=== PATIENT | female | born 1950 | race Hispanic/Latino ===

== ENCOUNTER 2017-04-17 07:09 | Day surgery (SDC) | payer MEDICARE, MEDICAID ==
[2017-04-14 12:41] VITALS: BMI 20.6
--- NOTE | 2017-04-15 06:37 | HP ---
REASON FOR ADMISSION: Left heart cath, possible angioplasty. BRIEF CLINICAL HISTORY: This is a 67-year-old female with past medical history of COPD, hypertension , admitted for left and right heart cath for possible angioplasty. PAST MEDICAL HISTORY: Significant for hypertension, hyperlipidemia, COPD. SOCIAL HISTORY: Active tobacco abuse. CURRENT MEDICATIONS: The patient is taking Cardizem 90 mg b.i.d., ____ 100 in the morning, Fosamax 7 0 mg daily, albuterol inhaler and ipratropium-Atrovent inhaler as well. Recent cardiac workup as follows: The patient had a stress test 04/10/2017 that shows probably abnorm al SPECT myocardial perfusion study, reversible defect suspicious for ischemia and apical defect, eje ction fraction 59%. The patient had echocardiography done on 04/06/2017 that showed ejection fraction 40%, moderate LV diastolic dysfunction, mild to moderate MR, mild tricuspid regurgitation. ALLERGIES: PNEUMOCOCCAL VACCINE. REVIEW OF SYSTEMS: As per HPI. PHYSICAL EXAMINATION: VITAL SIGNS: Height of the patient is 5 feet 6 inches, weight of the patient 128 pounds, body mass i ndex 21 kg/m2. Heart rate 60, blood pressure 130/66. HEENT: PERRLA. Extraocular muscles intact. NECK: Supple. No carotid bruits. No thyromegaly. CHEST: Clear to auscultation. HEART: S1, S2 regular. ABDOMEN: Soft. EXTREMITIES: Clubbing and cyanosis negative. IMPRESSION: Abnormal stress test, cardiomyopathy by stress test, ejection fraction 54%, by echo 40%, mitral regurgitation, tricuspid regurgitation, chronic obstructive pulmonary disease, hypertension. RECOMMENDATION: We will do left and right heart catheterization. Further recommendation after cardi ac catheterization. We will load with Plavix, follow with you. Thank you, Dr. Duke/Kurt, for providing us opportunity in taking care of the patient. Radha Mrarero MD cc: [phone] TT: 04/15/2017 06:36:47 co
[2017-04-17 07:43] LABS: HEMATOCRIT 44.8 % (36.0-48.0); MEAN CELL VOLUME 95.7 fL (80.0-105.0); MEAN CORPUSCULAR HEMOGLOBIN 33.1 pg (25.0-35.0); MEAN CORPUSCULAR HGB CONC 34.6 g/dl (31.0-37.0); MEAN PLATELET VOLUME 10.3 fl (7.0-11.0); RED CELL DISTRIBUTION WIDTH 12.6 % (11.5-14.5); WHITE BLOOD COUNT 7.4 10^3/ul (4.5-11.0)
[2017-04-17 07:49] LABS: CALCIUM 9.5 mg/dL (8.4-10.5); POTASSIUM 4.3 mmol/L (3.6-5.0)
[2017-04-17 07:56] VITALS: RESP 18
[2017-04-17 07:57] LABS: INR 0.89 (0.93-1.08); PARTIAL THROMBOPLASTIN TIME 26.5 Seconds (23.7-30.8)
[2017-04-17] MEDS ORDERED: Lidocaine 2% Inj (20ml) ONE (09:05)
[2017-04-17] MEDS ORDERED: Iodixanol 320 MG/ML 200 ML BOTTLE IV ONE (09:05)
[2017-04-17] MEDS ORDERED: Midazolam 2 MG/2 ML VIAL ONE ×2 (09:28→10:37)
[2017-04-17] MEDS ORDERED: Sodium Chloride 0.9% 1,000 ML IV SCH (11:00)
[2017-04-17 11:11] VITALS: TEMP 98.1
[2017-04-17 13:26] VITALS: O2SAT 99
[2017-04-17 13:47] VITALS: BP 153/77; PULSE 76
--- NOTE | 2017-04-17 18:13 | CARD ---
APPROVED REPORT Procedure(s) performed: Complete Heart Catheterization HISTORY The patient is a 67 year-old female with a history of : hypertension , dyslipidemia , COPD , chest pain SOB, OVIEDO and abnormal Stress test. INDICATION The indication(s) include : positive stress test. CASE TECHNIQUE The patient was brought electively to the Cardiac Catheterization Laboratory in a fasting state and was prepped and draped in a sterile manner. The right femoral groin was infiltrated with 2% Lidocaine subcutaneous anesthesia. A 6F Remedios sheath was inserted into the right femoral artery without difficulty. Coronary angiography was performed using coronary diagnostic catheters. The left coronary system was accessed and visualized with a Diagnostic , 5Fr,JL4.0 catheter. The right coronary system was accessed and visualized with a Diagnostic ,5FR,JR3.5 catheter. The left ventricle was accessed and visualized with a Pigtail catheter. Left ventricular/Aortic Valve gradient assessed on pullback. Left ventriculogram was performed in LIRIANO projection. A Right Heart Catheterization was performed with a 7 Fr. Gregory-Marissa catheter and pressure were recorded. A 7 sheath was inserted into the right femoral vein without difficulty. Coronary angiography was performed using coronary diagnostic catheters. Cardiac outputs were obtained by the Thermal Dilution method. Pre-demployment femoral angiogram was performed . Closure device was deployed with a 6 Fr Angioseal in RFA and Mynx in RF vein without any complications. The patient tolerated the procedure well and there were no complications associated with the procedure. Vessel Analysis The patient's coronary anatomy is right dominant. The left main coronary artery is a large size vessel with intimal irregularities and without significant stenosis. The left main bifurcates to the left anterior descending and circumflex. The left anterior descending artery is a medium size vessel with diffuse calcification noted throughout this vessel and without significant stenosis. There is a 55% stenosis in the very distal segment. diffusely diseased, but no focal flow limiting stenoses The first diagonal branch is a small size vessel with intimal irregularities and without significant stenosis. The circumflex artery is a large size vessel with diffuse calcification noted throughout this vessel and without significant stenosis. The first obtuse marginal branch is a large size vessel with diffuse calcification noted throughout this vessel and without significant stenosis. The second obtuse marginal branch is a small size vessel with intimal irregularities and without significant stenosis. The right coronary artery is a large size vessel without significant stenosis. The right posterior descending artery is a large size vessel without significant stenosis. Left Ventricle The left ventricle is normal in size with normal contractility. There was no cardiomyopathy. The left ventricular ejection fraction is estimated to be 55-60%. The left ventricular end diastolic pressure is 20-22 mmHg. There was no gradient across the aortic valve upon pullback. Right Heart Cath Findings The Right Atrial Pressure is 12 mmHg. The Right Ventricular Pressure is 38/8 mmHg. The Pulmonary Artery Pressure is 38/18 mmHg. mean of 23 The Pulmonary Catheter Wedge Pressure is 18-20 mmHg. PVR 1 Wood units. The cardiac output and index were assessed using thermo dilution. The Cardiac Output is 4.97 L/min. The Cardiac index is 3.10 L/min/m2. Conclusion Non Obstructive CAD, limited to very distal LAD 55%, Non flow limiting ( major epicardial coronaries are essentially normal) Preserved LV FX. EF-55%, [id number] RHC: RA-12,RV-38/8,PA-32/18 with a meanof 23, PCW-18-20, CO-4.91, CI-3.1,PVR 1 rivas unit. Recommendations Aggressive Medical TherapyCardiac Risk Reduction Program Cc; Ronnie Barron / Tai.
== END 2017-04-17 15:30 | disposition home or self-care (01) ==
LOC: CATH 07:09
PROVIDERS: ATTEND Internal Medicine Cardiovascular Disease
DX: I25.10 Atherosclerotic heart disease of native coronary artery without angina pectoris (principal); I10 Essential (primary) hypertension; I42.9 Cardiomyopathy, unspecified; I08.1 Rheumatic disorders of both mitral and tricuspid valves; J44.9 Chronic obstructive pulmonary disease, unspecified; E78.5 Hyperlipidemia, unspecified; Z72.0 Tobacco use
CPT/HCPCS: 36415; 80048; 80061; 85027; 85610; 85730; 86850; 86900; 93460; 99152; 99153; C1760 ×2; C1769; C1894; C2629; J1644; J1940; J2250; J3010; J7030; J7040

== ENCOUNTER 2017-10-15 12:23 | Observation (INO) | payer MEDICARE, MEDICAID ==
[2017-10-15 12:26] VITALS: BMI 22.3
[2017-10-15] MEDS ORDERED: Vancomycin 1gm in NS 250ml 1 GM/250 ML BAG IVPB STA (12:47)
[2017-10-15] MEDS ORDERED: Piperacillin/Tazobact 3.375 gm 100 ML IVPB STA (12:47)
[2017-10-15] MEDS ORDERED: Oxycodone/Acetaminophen 5/325 mg Tab PO STA (12:49)
[2017-10-15 13:20] LABS: BASO # 0.04 K/mm3 (0.0-2.0); BASO % 0.4 % (0.0-3.0); EOS # 0.1 (0.0-0.7); EOS % 1.1 % (1.5-5.0); GRAN # 7.01 (1.4-6.5); GRAN % 75.4 % (50.0-68.0); HEMATOCRIT 45.5 % (36.0-48.0); LYMPH # 1.5 (1.2-3.4); LYMPH % 16.2 % (22.0-35.0); MEAN CELL VOLUME 98.5 fl (80.0-105.0); MEAN CORPUSCULAR HGB CONC 34.5 g/dl (31.0-37.0); MEAN PLATELET VOLUME 10.3 fl (7.0-11.0); MONO # 0.6 (0.1-0.6); MONO % 6.9 % (1.0-6.0); RED CELL DISTRIBUTION WIDTH 12.8 % (11.5-14.5); WHITE BLOOD COUNT 9.3 10^3/ul (4.5-11.0)
[2017-10-15 13:22] LABS: VENOUS BLOOD GAS BASE EXCESS -1.4 mmol/L (0.0-2.0); VENOUS BLOOD PH 7.31 (7.32-7.43)
--- NOTE | 2017-10-15 13:23 | ED PDOC ---
Arrival/HPI - General Chief Complaint: Breast Problem Time Seen by Provider: 10/15/17 12:25 Historian: Patient - History of Present Illness Narrative History of Present Illness (Text): 10/15/17 13:20 67yr old female presents today with 3 week history of breast infection. pt states over the past 3 weeks she has been on 2 different antibiotics. pt states redness improved briefly and then returned. pt states she now has lump to inferior aspect of breast with severe pain, warmth and surrounding redness. denies fever/chill. no cp or sob. no abdominal pain. no other complaints. pt states she did recently have mammogram. Time/Duration: Other (3 weeks) Symptom Onset: Gradual Symptom Course: Worsening Quality: Aching Severity Level: 6 Past Medical History - Provider Review Nursing Documentation Reviewed: Yes - Travel History Have you recently traveled outside [place] w/in the past 3 mons?: No - Infectious Disease Hx of Infectious Diseases: None - Tetanus Immunization Tetanus Immunization: Unknown - Reproductive Menopause: Yes - Past Medical History Past Medical History: No Previous - Cardiac Hx Cardiac Arrhythmia: Yes Hx Pacemaker: No - Pulmonary Hx Asthma: Yes Hx Chronic Obstructive Pulmonary Disease (COPD): Yes Hx Emphysema: Yes - Neurological Hx Paralysis: No - HEENT Hx HEENT Disorder: No Hx Blind: No Hx Cataracts: No Hx Deafness: No Hx Difficulty Chewing: No Hx Epistaxis: No Hx Glaucoma: No Hx Macular Degeneration: No - Renal Hx Renal Disorder: No Hx Dialysis: No Hx Kidney Stones: No Hx Neurogenic Bladder: No Hx Pyelonephritis: No Hx Renal Cancer: No Hx Renal Failure: No - Endocrine/Metabolic Hx Endocrine Disorders: No Hx Adrenal Cancer: No Hx Diabetes Insipidus: No Hx Diabetes Mellitus Type 1: No Hx Diabetes Mellitus Type 2: No Hx Hyperthyroidism: No Hx Hypothyroidism: No Hx Systemic Lupus Erythematosus: No - Hematological/Oncological Hx Blood Transfusions: No Hx Blood Transfusion Reaction: No - Integumentary Hx Dermatological Disorder: No Hx Basal Cell Carcinoma: No Hx Eczema: No Hx Melanoma: No Hx Psoriasis: No Hx Squamous Cell Carcinoma: No - Musculoskeletal/Rheumatological Hx Musculoskeletal Disorders: No - Gastrointestinal Hx Gastrointestinal Disorders: No Hx Colostomy: No Hx Crohn's Disease: No Hx Diverticulitis: No Hx Gall Bladder Disease: No Hx Gastroesophageal Reflux: No Hx Gastrointestinal Ulcer: No Hx Ileostomy: No Hx Pancreatitis: No HX Swallowing Problems: No - Genitourinary/Gynecological Hx Genitourinary Disorders: No Hx Hematuria: No Hx Incontinence: No Hx Prostate Problems: No Hx Sexually Transmitted Diseases: No Hx Urinary Tract Infection: No - Psychiatric Hx Emotional Abuse: No Hx Physical Abuse: No Hx Substance Use: No - Surgical History Hx Amputation: No Hx Appendectomy: No Hx Cardiac Catheterization: No Hx Cholecystectomy: No Hx Coronary Stent: No Hx Gastric Bypass Surgery: No Hx Hysterectomy: No Hx Inguinal Hernia Repair: No Hx Joint Replacement: No Hx Kidney Transplant: No Hx Liver Transplant: No Hx Mastectomy: No Hx Musculoskeletal Surgery: No Hx Open Heart Surgery: No Hx Orthopedic Surgery: No Hx Splenectomy: No Hx Valve Replacement: No - Anesthesia Hx Anesthesia Reactions: No Hx Malignant Hyperthermia: No - Suicidal Assessment Feels Threatened In Home Enviroment: No Family/Social History - Physician Review Nursing Documentation Reviewed: Yes Family/Social History: Unknown Family HX Smoking Status: Current Some Days Smoker Hx Alcohol Use: Yes (socially) Hx Substance Use: No Hx Substance Use Treatment: No Allergies/Home Meds Allergies/Adverse Reactions: Allergies pneumococcal vaccine Allergy (Severe, Verified 07/14/16 19:07) SWELLING/REDNESS Home Medications: Home Meds Medication Instructions Recorded Confirmed Aclidinium [place] [Tudorza 1 puff IH BID 04/29/16 10/15/17 Pressair] Alendronate [Fosamax] 70 mg PO SUN 04/29/16 10/15/17 Mometasone [Asmanex Twist[place]er 220 1 puff IH QAM 04/29/16 10/15/17 MCG] Albuterol/Ipratropium [Duoneb 3 1 inhaler INH Q6 PRN 10/15/17 10/15/17 mg/0.5 mg (3 ml) UD] Aspirin [Aspirin Chewable] 81 mg PO DAILY 10/15/17 10/15/17 Carvedilol [Coreg] 3.125 mg PO BID 10/15/17 10/15/17 Cholecalciferol (Vitamin D3) 1 tab PO DAILY 10/15/17 10/15/17 [Vitamin D3] Valsartan [Diovan] 100 mg PO DAILY 10/15/17 10/15/17 diltiaZEM [Cardizem] 90 mg PO DAILY 10/15/17 10/15/17 Review of Systems - Review of Systems Constitutional: absent: Fatigue, Fevers Respiratory: absent: SOB, Cough Cardiovascular: absent: Chest Pain, Palpitations Gastrointestinal: absent: Abdominal Pain, Nausea, Vomiting Genitourinary Female: absent: Dysuria Skin: Rash, Abscess, Cellulitis Neurological: absent: Headache, Dizziness Psychiatric: absent: Anxiety, Depression Physical Exam Vital Signs Reviewed: Yes Vital Signs Temp Pulse Resp BP Pulse Ox 10/15/17 12:24 98.3 F 100 H 18 130/81 96 Temperature: Afebrile Blood Pressure: Normal Pulse: Tachycardic Respiratory Rate: Normal Appearance: Positive for: Well-Appearing, Non-Toxic, Comfortable Pain Distress: None Mental Status: Positive for: Alert and Oriented X 3 - Systems Exam Head: Present: Atraumatic Mouth: Present: Moist Mucous Membranes Neck: Present: Normal Range of Motion Respiratory/Chest: Present: Clear to Auscultation, Good Air Exchange. No: Respiratory Distress, Accessory Muscle Use Cardiovascular: Present: Regular Rate and Rhythm, Normal S1, S2. No: Murmurs Breast/Axillary: Present: Erythema (right breast; there is a quarter sized area of erythema and fluctance noted over inferior aspect of the breast just inferior to the areola; with erythema extending along the inferior medial and lateral aspects of the breast. ), Masses, Swelling, Tender to Palpation. No: Nipple Discharge Neurological: Present: GCS=15, Speech Normal Skin: Present: Warm, Dry, Normal Color. No: Rashes Psychiatric: Present: Alert, Oriented x 3 Medical Decision Making ED Course and Treatment: 10/15/17 13:53 67yr old female with 3 week history of abscess/cellulitis to breast. cbc wnl cmp K; 5.1 lactate: wnl cxr; wnl 10/15/17 13:[address] rubin; accepts admission for breast abscess and cellulitis with failure of outpatient abx; she would like Dr. Carvajal on consult Case discussed with surgical consultant dr. mendieta; he will see patient at bedside impression; celluiltis, breast abscess admit to med/surg - Lab Interpretations Lab Results: 10/15/17 13:10 10/15/17 13:10 Lab Results 10/15/17 13:10: pO2 30, VBG pH 7.31 L, VBG pCO2 51.0, VBG HCO3 25.7, VBG Total CO2 27.3, VBG O2 Sat (Calc) 63.5, VBG Base Excess -1.4 L, VBG Potassium 5.2, Sodium 133.0, Chloride 99.0, Glucose 101, Lactate 1.4, FiO2 21.0, Venous Blood Potassium 5.2 10/15/17 13:10: WBC 9.3, RBC 4.62, Hgb 15.7, Hct 45.5, MCV 98.5, MCH 34.0, MCHC 34.5, RDW 12.8, Plt Count 232, MPV 10.3, Gran % 75.4 H, Lymph % (Auto) 16.2 L, [place] % (Auto) 6.9 H, Eos % (Auto) 1.1 L, Baso % (Auto) 0.4, Gran # 7.01 H, Lymph # 1.5, [place] # 0.6, Eos # 0.1, Baso # 0.04 10/15/17 13:10: Sodium 134, Chloride 99, Potassium 5.1 H, Carbon Dioxide 26, Anion Gap 14, BUN 17, Creatinine 1.2, Est GFR ( Amer) 55, Est GFR (Non- Af Amer) 45, Random Glucose 98, Calcium 10.2, Total Bilirubin 1.0, AST 26, ALT 37, Alkaline Phosphatase 61, Total Protein 8.0, Albumin 4.7, Globulin 3.3, Albumin/Globulin Ratio 1.4 - RAD Interpretation Radiology Orders: 10/15/17 13:25 CHEST PORTABLE [RAD] Stat - Medication Orders Current Medication Orders: Vancomycin HCl (Vancomycin 1gm) 1 gm in 250 mls @ 167 mls/hr IVPB STAT STA PRN Reason: Protocol Stop: 10/15/17 14:16 Discontinued Medications Piperacillin Sod/Tazobactam Sod (Zosyn 3.375 In Ns 100ml) 100 mls @ 200 mls/hr IVPB STAT STA PRN Reason: Protocol Stop: 10/15/17 13:16 Last Admin: 10/15/17 13:19 Dose: 200 mls/hr eMAR Start Stop Document 10/15/17 13:19 AD (Rec: 10/15/17 13:19 AD [id number]) Intravenous Solution Start Date 10/15/17 Start Time 13:19 Oxycodone/Acetaminophen (Percocet 5/325 Mg Tab) 1 tab PO STAT STA Stop: 10/15/17 12:50 Last Admin: 10/15/17 13:10 Dose: 1 tab MAR Pain Assessment Document 10/15/17 13:10 AD (Rec: 10/15/17 13:18 AD [id number]) Pain Reassessment Is this a pain reassessment? No Presence of Pain Presence of Pain Yes Pain Scale Used Pain Scale Used Numeric Location Left, Right or Bilateral Right Pain Location Body Site Breast Description Description Constant Intensity of Pain at present 8 Pain Behavior Facial Grimacing Disposition/Present on Arrival - Present on Arrival Any Indicators Present on Arrival: No History of DVT/PE: No History of Uncontrolled Diabetes: No Urinary Catheter: No History of Decub. Ulcer: No History Surgical Site Infection Following: None - Disposition Have Diagnosis and Disposition been Completed?: Yes Diagnosis: Breast abscess, Cellulitis of breast Disposition: HOSPITALIZED Disposition Time: 13:20 Patient Plan: Admission Patient Problems: Current Active Problems Problem Status Onset Breast abscess Acute Cellulitis of breast Acute Condition: FAIR Discharge Instructions (ExitCare): Cellulitis (ED) Forms: [employer] ([place])
[2017-10-15 13:25] LABS: ALB/GLOB RATIO 1.4 (1.1-1.8); CALCIUM 10.2 mg/dL (8.4-10.5); POTASSIUM 5.1 mmol/L (3.6-5.0)
--- NOTE | 2017-10-15 14:27 | RAD ---
HISTORY: right breast abscess/cellulitis COMPARISON: 07/14/2016 FINDINGS: LUNGS: No active pulmonary disease. PLEURA: No significant pleural effusion identified, no pneumothorax apparent. CARDIOVASCULAR: Normal. OSSEOUS STRUCTURES: No significant abnormalities. VISUALIZED UPPER ABDOMEN: Normal. OTHER FINDINGS: None. IMPRESSION: No active disease.
--- NOTE | 2017-10-15 15:25 | CP.PCM.CON ---
History of Present Illness - History of Present Illness History of Present Illness: Surgery Consult note. Dr. Carvajal 67yo F with PMhx of HTN, COPD, Asthma, Osteoporosis here for evaluation of right breast pain. Patient states that she has been getting treated for a right breast abscess for the past 3 weeks. He PMD has tried two different antibiotics for 1 week each, she does not remember the names. She was last evaluated by her PMD on Monday, who stated that the breast abscess had improved. She was then sent for an annual screening mammogram on Monday, 10/11. Since then, the patient reports worsening pain, redness in the right breast. She reports similar problems in the past and reports a R Breast abscess I&D 5 years ago with a drain placed. She also reports a history of left breast abscesses off an on, resolved, last episode 1 year ago. Currently, she denies any fevers or chills. No CP/SOB. No N/V/D. no abd pain. No headaches. no urinary changes. PMD: Dr. Hicks PMHx: HTN, COPD, Asthma, Osteoporosis PSHx: Previous R sided breast Abscess I&D 5 yrs ago Social Hx: Current smoker 2cigs per day for the past 3 years, used to smoke 1ppd for 20+years. Social ETOH use. Denies any illicit drugs Allergy: Pneumococcal Vaccine Review of Systems - Review of Systems All systems: reviewed and no additional remarkable complaints except - Constitutional Constitutional: absent: Chills, Fever - Breasts Breasts: Pain Additional comments: Right breast pain, redness, no drainage/discharge - Respiratory Respiratory: absent: Cough, Dyspnea - Gastrointestinal Gastrointestinal: absent: Abdominal Pain, Diarrhea, Nausea, Vomiting - Genitourinary Genitourinary: absent: Difficulty Urinating, Dysuria - Musculoskeletal Musculoskeletal: absent: Back Pain - Integumentary Integumentary: Erythema (Right breast) - Neurological Neurological: absent: Dizziness, Numbness - Psychiatric Psychiatric: absent: Anxiety Past Patient History - Infectious Disease Hx of Infectious Diseases: None - Tetanus Immunizations Tetanus Immunization: Unknown - Past Social History Smoking Status: Current Some Days Smoker Alcohol: Social Drugs: Denies Home Situation {Lives}: With Family - CARDIAC Hx Cardia Arrhythmia: Yes Hx Pacemaker: No - PULMONARY Hx Asthma: Yes Hx Chronic Obstructive Pulmonary Disease (COPD): Yes Hx Emphysema: Yes - NEUROLOGICAL Hx Paralysis: No - HEENT Hx HEENT Problems: No Hx Blind: No Hx Cataracts: No Hx Deafness: No Hx Difficulty Chewing: No Hx Epistaxis: No Hx Glaucoma: No Hx Macular Degeneration: No - RENAL Hx Chronic Kidney Disease: No Hx Dialysis: No Hx Kidney Stones: No Hx Neurogenic Bladder: No Hx Pyelonephritis: No Hx Renal (Kidney) Cancer: No Hx Renal Failure: No - ENDOCRINE/METABOLIC Hx Endocrine Disorders: No Hx Adrenal Cancer: No Hx Diabetes Insipidus: No Hx Diabetes Mellitus Type 1: No Hx Diabetes Mellitus Type 2: No Hx Hyperthyroidism: No Hx Hypothyroidism: No Hx Systemic Lupus Erythematosus: No - HEMATOLOGICAL/ONCOLOGICAL Hx Blood Transfusions: No Hx Blood Transfusion Reaction: No - INTEGUMENTARY Hx Dermatological Problems: No Hx Basil Cell: No Hx Eczema: No Hx Melanoma: No Hx Psoriasis: No Hx Squamous Cell: No - MUSCULOSKELETAL/RHEUMATOLOGICAL Hx Musculoskeletal Disorders: No - GASTROINTESTINAL Hx Gastrointestinal Disorders: No Hx Colostomy: No Hx Crohn's Disease: No Hx Diverticulitis: No Hx Gall Bladder Disease: No Hx Gastroesophageal Reflux: No Hx Ileostomy: No Hx Pancreatitis: No HX Swallowing Problems: No - GENITOURINARY/GYNECOLOGICAL Hx Genitourinary Disorders: No Hx Hematuria: No Hx Incontinence: No Hx Sexually Transmitted Disorders: No Hx Urinary Tract Infection: No - PSYCHIATRIC Hx Emotional Abuse: No Hx Physical Abuse: No Hx Substance Use: No - SURGICAL HISTORY Hx Amputation: No Hx Appendectomy: No Hx Cardiac Catheterization: No Hx Cholecystectomy: No Hx Coronary Stent: No Hx Gastric Bypass Surgery: No Hx Hysterectomy: No Hx Joint Replacement: No Hx Kidney Transplant: No Hx Liver Transplant: No Hx Mastectomy: No Hx Musculoskeletal Surgery: No Hx Open Heart Surgery: No Hx Orthopedic Surgery: No Hx Splenectomy: No Hx Valve Replacement: No - ANESTHESIA Hx Anesthesia Reactions: No Hx Malignant Hyperthermia: No Meds Allergies/Adverse Reactions: Allergies Allergy/AdvReac Type Severity Reaction Status Date / Time pneumococcal vaccine Allergy Severe SWELLING/RE Verified 07/14/16 19:07 DNESS Physical Exam - Constitutional Appears: Well, No Acute Distress - Head Exam Head Exam: ATRAUMATIC, NORMAL INSPECTION, NORMOCEPHALIC - Eye Exam Eye Exam: EOMI - ENT Exam ENT Exam: Mucous Membranes Moist - Respiratory Exam Respiratory Exam: Clear to Auscultation Bilateral, NORMAL BREATHING PATTERN. absent: Wheezes, Respiratory Distress - Cardiovascular Exam Cardiovascular Exam: RRR, +S1, +S2. absent: JVD - GI/Abdominal Exam GI & Abdominal Exam: Soft. absent: Distended, Firm, Guarding, Rebound, Rigid, Tenderness - Extremities Exam Extremities exam: Positive for: normal inspection. Negative for: calf tenderness - Neurological Exam Neurological exam: Alert, Oriented x3 - Psychiatric Exam Psychiatric exam: Normal Affect, Normal Mood - Skin Additional comments: Right Breast: large breast, Some degree of nipple retraction. Small 2cm area of collection, fluctuance 1.5cm away from the nipple (7 'oclock position). No active drainage. Some discolored skin noted at the area of fluctuance. Results - Vital Signs Recent Vital Signs: Last Vital Signs Temp 98.3 F 10/15/17 12:24 Pulse 84 10/15/17 15:17 Resp 16 10/15/17 15:17 BP 102/67 10/15/17 15:17 Pulse Ox 95 10/15/17 15:17 - Labs Result Diagrams: 10/15/17 13:10 10/15/17 13:10 Labs: Laboratory Results - last 24 hr 10/15/17 10/15/17 10/15/17 13:10 13:10 13:10 WBC 9.3 RBC 4.62 Hgb 15.7 Hct 45.5 MCV 98.5 MCH 34.0 MCHC 34.5 RDW 12.8 Plt Count 232 MPV 10.3 Gran % 75.4 H Lymph % (Auto) 16.2 L [place] % (Auto) 6.9 H Eos % (Auto) 1.1 L Baso % (Auto) 0.4 Gran # 7.01 H Lymph # 1.5 [place] # 0.6 Eos # 0.1 Baso # 0.04 pO2 30 VBG pH 7.31 L VBG pCO2 51.0 VBG HCO3 25.7 VBG Total CO2 27.3 VBG O2 Sat (Calc) 63.5 VBG Base Excess -1.4 L VBG Potassium 5.2 Sodium 134 133.0 Chloride 99 99.0 Glucose 101 Lactate 1.4 FiO2 21.0 Potassium 5.1 H Carbon Dioxide 26 Anion Gap 14 BUN 17 Creatinine 1.2 Est GFR ( Amer) 55 Est GFR (Non-Af Amer) 45 Random Glucose 98 Calcium 10.2 Total Bilirubin 1.0 AST 26 ALT 37 Alkaline Phosphatase 61 Total Protein 8.0 Albumin 4.7 Globulin 3.3 Albumin/Globulin Ratio 1.4 Venous Blood Potassium 5.2 Assessment & Plan - Assessment and Plan (Free Text) Assessment: 67yo F with Right Breast abscess. Failed out-patient oral abx treatment x2 weeks. - 10/11 Bilateral Breast Mammo: BiRADS 2, negative study - F/u Right breast US - Will perform Right breast abscess I&D and send culture - f/u wound culture - Continue Abx - Post-procedure wound care: - Will need BID packing changes with 1/4in iodoform packing after procedure - Keep area clean and dry. Replace with dry gauze as needed Further recs as per Dr. Tomas Bergman PGY1 surgery pager: [phone]
--- NOTE | 2017-10-15 16:57 | US ---
PROCEDURE: Ultrasound right breast HISTORY: Breast Abscess COMPARISON: Not available TECHNIQUE: Targeted ultrasound examination of the right breast was performed in the region of focal swelling and tenderness in the 8 o'clock axis, approximately 1 cm from the nipple. FINDINGS: In the 8 o'clock axis, 1 cm from the nipple, there is a phlegmonous collection measuring approximately 4.5 x 1.5 x 3.7 cm. There are thick vascular septations seen within this collection. This is not yet a true drainable collection. There is no other solid or cystic mass identified. In the right axilla, there is a 3.7 cm lymph node with cortical thickening up to 3 mm. This is most likely a reactive lymph node. IMPRESSION: Complex collection with internal vascular septations in the 8 o'clock axis of the right breast, consistent with a phlegmon. 4.5 cm in greatest dimension. Probable reactive right axillary lymph node.
--- NOTE | 2017-10-15 17:34 | CP.PCM.PN ---
Subjective - Date & Time of Evaluation Date of Evaluation: 10/15/17 Time of Evaluation: 17:31 - Subjective Subjective: General Surgery Procedure note. Dr. Carvajal Written consent obtained and on chart. All questions, concerns and benefits expected discussed with the patient. She agrees with planned procedure and gives full consent without reservations. Patient placed flat, in the supine position. Right breast prepped with betadine and dressed in the usual sterile fashion. Purulent discharge noted prior to any incision or injection of local anesthesia. It was cultured and sent for analysis. 8cc of 1% lidocaine was used for local anesthesia, and adequate anesthesia was achieved. Approximately 1cm incision was made with #11 blade. Immediate purulent material was expressed, approximately 5cc. Hemostats were used to break up any possible loculations and explore the wound. Wound was irrigated with copious amount of normal saline. 1/4inch iodoform packing was used to pack the wound. Good hemostasis was achieved. Clean sterile dressing was applied to the area. No immediate complications were noted. Patient tolerated the procedure well. Please see consult note for further plans. Further recs as per Dr. Wei Bergman PGY1 surgery pager: [phone] Objective - Vital Signs/Intake and Output Vital Signs (last 24 hours): Temp Pulse Resp BP Pulse Ox 98.3 F 84 16 102/67 95 10/15/17 12:24 10/15/17 16:12 10/15/17 16:12 10/15/17 16:12 10/15/17 15:17 - Medications Medications: Current Medications Arformoterol Tartrate (Brovana) 15 mcg IH [id number] [facility] Budesonide (Pulmicort Respules) 0.25 mg IH [id number] [facility] Diltiazem HCl (Cardizem Cd) 120 mg PO DAILY [facility] Losartan Potassium (Cozaar) 50 mg PO DAILY [facility]
[2017-10-15] MEDS: Arformoterol 15 mcg/2 ml Inh Sol IH SCH (19:00)
[2017-10-15] MEDS: Budesonide 0.25 mg/2 ml Inhal Susp UD IH SCH (19:01)
[2017-10-15] MEDS: Vancomycin 1gm in NS 250ml 1 GM/250 ML BAG IVPB SCH (19:21)
[2017-10-15] MEDS ORDERED: Arformoterol 15 mcg/2 ml Inh Sol IH SCH (20:00)
[2017-10-16] MEDS: Vancomycin 1gm in NS 250ml 1 GM/250 ML BAG IVPB SCH (05:00)
[2017-10-16 06:54] LABS: HEMATOCRIT 38.3 % (36.0-48.0); MEAN CELL VOLUME 99.7 fl (80.0-105.0); MEAN CORPUSCULAR HEMOGLOBIN 32.6 pg (25.0-35.0); MEAN CORPUSCULAR HGB CONC 32.6 g/dl (31.0-37.0); MEAN PLATELET VOLUME 10.1 fl (7.0-11.0); RED CELL DISTRIBUTION WIDTH 13.1 % (11.5-14.5); WHITE BLOOD COUNT 7.9 10^3/ul (4.5-11.0)
[2017-10-16 08:00] VITALS: BP 134/82; PULSE 78; RESP 19; TEMP 98; O2SAT 90
[2017-10-16 08:10] LABS: ALB/GLOB RATIO 1.3 (1.1-1.8); BILIRUBIN,TOTAL 0.9 mg/dL (0.2-1.3); CALCIUM 9.1 mg/dL (8.4-10.5); POTASSIUM 4.5 mmol/L (3.6-5.0); TOTAL PROTEIN 6.1 g/dL (5.8-8.3)
[2017-10-16] MEDS: Budesonide 0.25 mg/2 ml Inhal Susp UD IH SCH (08:25)
[2017-10-16] MEDS: Arformoterol 15 mcg/2 ml Inh Sol IH SCH (08:25)
[2017-10-16] MEDS ORDERED: Albuterol-Ipratrop 3 mg / 0.5 (3 ml) UD IH PRN (08:55)
[2017-10-16] MEDS ORDERED: diltiaZEM 120 mg/24 Hours CD Cap PO SCH (10:00)
--- NOTE | 2017-10-16 10:30 | CP.PCM.PN ---
Subjective - Date & Time of Evaluation Date of Evaluation: 10/16/17 Time of Evaluation: 10:26 - Subjective Subjective: Surgery Progress Note for Dr. Carvajal: Pt seen and examined at bedside. Pt denied any acute overnight events. Pt is POD #1 bedside I&D right breast abscess. Pt states pain is controlled. Pt denied CP , SOB, n/v/d, abdominal pain, fever, chills, RAMIREZ, or dizziness. Objective - Vital Signs/Intake and Output Vital Signs (last 24 hours): Temp Pulse Resp BP Pulse Ox 98 F 78 19 134/82 90 L 10/16/17 07:00 10/16/17 09:44 10/16/17 07:00 10/16/17 09:44 10/16/17 07:00 Intake and Output: 10/16/17 10/16/17 06:59 18:59 Intake Total 1140 Output Total 0 Balance 1140 - Medications Medications: Current Medications Albuterol/Ipratropium (Duoneb 3 Mg/0.5 Mg (3 Ml) Ud) 3 ml IH [id number] PRN PRN Reason: Wheezing Arformoterol Tartrate (Brovana) 15 mcg IH [id number] [facility] Last Admin: 10/16/17 08:25 Dose: 15 mcg Budesonide (Pulmicort Respules) 0.25 mg IH [id number] [facility] Last Admin: 10/16/17 08:25 Dose: 0.25 mg Diltiazem HCl (Cardizem Cd) 120 mg PO DAILY [facility] Last Admin: 10/16/17 09:42 Dose: 120 mg Vancomycin HCl (Vancomycin 1gm) 1 gm in 250 mls @ 167 mls/hr IVPB Q12H [facility] PRN Reason: Protocol Last Admin: 10/16/17 05:00 Dose: 167 mls/hr Losartan Potassium (Cozaar) 50 mg PO DAILY [facility] Last Admin: 10/16/17 09:44 Dose: 50 mg Tramadol HCl (Ultram) 50 mg PO TID PRN PRN Reason: Pain, moderate (4-7) - Labs Labs: 10/16/17 06:15 10/16/17 06:15 - Constitutional Appears: Non-toxic, No Acute Distress - Head Exam Head Exam: ATRAUMATIC, NORMAL INSPECTION, NORMOCEPHALIC - Eye Exam Eye Exam: EOMI, Normal appearance, PERRL - ENT Exam ENT Exam: Mucous Membranes Moist - Neck Exam Neck Exam: Full ROM - Respiratory Exam Respiratory Exam: Clear to Ausculation Bilateral. absent: Accessory Muscle Use , Rales, Rhonchi, Wheezes, Respiratory Distress - Cardiovascular Exam Cardiovascular Exam: RRR, +S1, +S2. absent: Diastolic murmur, Gallop, Rubs, Murmur - GI/Abdominal Exam GI & Abdominal Exam: Soft. absent: Distended, Guarding, Tenderness, Mass, Rebound - Extremities Exam Extremities Exam: Normal Inspection - Back Exam Back Exam: NORMAL INSPECTION - Neurological Exam Neurological Exam: Alert, Awake, Oriented x3 - Psychiatric Exam Psychiatric exam: Normal Affect, Normal Mood - Skin Skin Exam: Dry, Intact, Normal Color, Warm Additional comments: Incision site clean and dry, packed with iodoform, mimimal erythema/TTP Assessment and Plan - Assessment and Plan (Free Text) Assessment: 67yo F with Right Breast abscess. Failed out-patient oral abx treatment x2 weeks. POD#1 bedside I&D right breast abscess. - 10/11 Bilateral Breast Mammo: BiRADS 2, negative study - Right breast US likely 4.5 cm phlegmon right breast: internal vascular septations at 8 o'clock position - f/u wound culture - Continue Abx: Vanco - Post-procedure wound care: - BID packing changes with 1/4in iodoform packing after procedure - Keep area clean and dry. Replace with dry gauze as needed Further recs as per Dr. Tomas Koenig, PGY1
--- NOTE | 2017-10-16 17:18 | HP ---
CHIEF COMPLAINT: Right breast swelling and pain for today. HISTORY OF PRESENT ILLNESS: This is a 67-year-old female with history of COPD, hypertension, history of chronic tachycardia, presented with complaints of right breast swelling, redness, and pain for 2 days prior to admission. The patient had small skin cellulitis with small abscess 2 weeks ago treated with antibiotics. Infection resolved, but she noticed recur of her swelling and pain 2 days ago.. The patient denies any fever. 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 ALLERGIES: THE PATIENT HAS KNOWN ALLERGY TO PNEUMOCOCCAL VACCINE.. PRESENT MEDICATIONS : Cardizem, carvedilol, vitamin D and Fosamax.Asmanex, Duoneb. FAMILY HISTORY: Noncontributory. SOCIAL HISTORY: The patient is a smoker. She smokes half a pack a day for the past 40 years. She also drinks alcohol few times a week. The patient denies any drug use. The patient is semi-retired, but works for [employer] office. She is . She lives with . She is independent for activities of daily living. REVIEW OF SYSTEMS: She denies any fever. Denies any loss of appetite or weight loss. Denies any headache, sore throat, dysphagia, nasal congestion. She complains of chronic cough productive of clear mucus. She has some exertional dyspnea. The patient denies any chest pain, heart palpitation, diaphoresis. She denies any abdominal pain, nausea, vomiting, diarrhea or constipation. She denies any dysuria, hematuria, frequency or flank pain. The patient complains of chronic joint pain. Denies any swelling or erythema of the joint. She denies any anxiety or depression. PHYSICAL EXAMINATION: VITAL SIGNS: On admission; temperature normal 97.6, pulse is 84 per minute, blood pressure 134/82, respiratory rate 20 and oxygen saturation between 90 to 95 on 2 liters of nasal cannula. She is comfortable in bed, alert, awake, and oriented. HEENT: Head is normocephalic and atraumatic. Eyes: Pupils reactive to light. Oral mucosa is moist. NECK: Supple. LUNGS: With decreased breath sounds and scattered wheezing. No rales or rhonchi. HEART: Regular rhythm and rate. ABDOMEN: Soft, nontender, nondistended. BREASTS: Exam showed right lateral breast wound with surgical package. No significant drainage noted. No bleeding. No tenderness on palpation during exam. EXTREMITIES: With no edema, cyanosis or clubbing. NEUROLOGIC: Normal. DIAGNOSTIC TESTS: Showed CBC normal with WBC 9.3, this morning 7.9, hemoglobin 15.7, hematocrit 45.5, platelet count 232. Chemistry was normal. She was evaluated by founder president and ceo in the emergency room. Her right breast abscess was drained in the emergency room. She had wound culture done, which results are still pending. ASSESSMENT: 1. Right breast skin abscess. Failed outpatient antibiotics therapy. 2. Chronic obstructive pulmonary disease. 3. Hypertension. PLAN OF TREATMENT: We will monitor and change dressing. The patient was treated with IV vancomycin and Zosyn in emergency room. Vancomycin was continued. We will discuss case with surgeon. We will plan for discharge if okay with surgeon. Megan Chung MD EILEEN
--- NOTE | 2017-10-17 01:53 | DS ---
DATE: SUBJECTIVE: The patient is a 67-year-old female, admitted for right breast skin abscess, which was drained in the Emergency Room last night. The patient is feeling much better this morning. She denies any pain. The patient is afebrile. Her vitals are stable. PHYSICAL EXAMINATION GENERAL: Alert, awake, and oriented. HEENT: Head is normocephalic and atraumatic. NECK: Supple. LUNGS: With decreased breath sounds, scattered wheezing. HEART: Regular rhythm and rate. SKIN: The right breast area with slight erythema. There is a wound packed with no significant discharge. There is no tenderness or induration. ABDOMEN: Soft, nontender, and nondistended. EXTREMITIES: With no edema. LABORATORY DATA: Wound culture is still pending. Blood cultures are negative. ASSESSMENT: 1. A 67-year-old female with right breast skin abscess, status post incision and drainage. 2. Chronic obstructive pulmonary disease. 3. Hypertension. PLAN OF TREATMENT: The patient will be discharged home with visiting nurse for wound checkup and change of dressing. The patient will be maintained on Levaquin 500 mg daily for the next 7 days. Advised to follow up with primary care doctor on Monday. The patient also will resume all her chronic medications and she will be maintained on a heart-healthy diet. Megan Chung MD MTDKarina
== END 2017-10-16 17:35 | disposition home health service (06) ==
LOC: ED 12:23 → ERH 15:16 → 5RNO 17:41
PROVIDERS: ADMIT Family Medicine; ATTEND Family Medicine
DX: N61.1 Abscess of the breast and nipple (principal); J43.9 Emphysema, unspecified; I48.91 Unspecified atrial fibrillation; I10 Essential (primary) hypertension; F17.210 Nicotine dependence, cigarettes, uncomplicated; M81.0 Age-related osteoporosis without current pathological fracture; N64.4 Mastodynia; Z88.7 Allergy status to serum and vaccine; Z79.82 Long term (current) use of aspirin
CPT/HCPCS: 10060; 36415; 71010; 76641; 80053; 82803; 85025; 85027; 87040; 87070; 87081; 94640; 94760; 99285; G0378; J2543

== ENCOUNTER 2019-01-31 13:08 | Outpatient (CLI) | payer MEDICARE, MEDICAID | END 2019-01-31 13:09 | disposition home or self-care (01) | LOC: LAB 13:08 ==

== ENCOUNTER 2019-02-05 13:12 | Outpatient (CLI) | payer MEDICARE, MEDICAID | END 2019-02-05 13:13 | disposition home or self-care (01) | LOC: RAD 13:12 ==

== ENCOUNTER 2019-02-13 08:11 | Outpatient (CLI) | payer MEDICARE, MEDICAID | END 2019-02-13 08:12 | disposition home or self-care (01) | LOC: CARDIO 08:11 ==

== ENCOUNTER 2019-03-18 12:06 | Outpatient (CLI) | payer MEDICARE, MEDICAID | END 2019-03-18 12:07 | disposition home or self-care (01) | LOC: RAD 12:06 ==